=== PATIENT | female | born 1990 | race Hispanic/Latino ===

== ENCOUNTER 2021-05-26 07:43 | Emergency (ER) | payer OTHER ==
[~2021-05-26] VITALS: Ht 154.9 cm; Wt 88.6 kg
[~2021-05-26 07:43] MED LIST: ACETAMINOP160 MG/5 M; CIPRO500 MG OR; FERR SULFATE325 MG PO; LORTAB 7.57.5 MG PO; NO HOME MEDS; PRENATABS FA PO
[2021-05-26 08:59] VITALS: BP 137/90
== END 2021-05-26 09:12 | disposition home or self-care (01) ==
LOC: ED 07:43
DX: J06.9 Acute upper respiratory infection, unspecified (principal); Z20.822 Contact with and (suspected) exposure to COVID-19

== ENCOUNTER 2023-04-02 19:11 | Emergency (ER) | payer OTHER ==
[2023-04-02] VITALS (7 sets, daily range): BP systolic 140–166; BP diastolic 92–122
[~2023-04-02] VITALS: Ht 154.9 cm; Wt 90.0 kg
[2023-04-02] MEDS ORDERED: NAPROXEN500 MG PO (20:00)
== END 2023-04-02 23:32 | disposition home or self-care (01) ==
LOC: ED 19:11
DX: S93.401A Sprain of unspecified ligament of right ankle, initial encounter (principal); X50.0XXA Overexertion from strenuous movement or load, initial encounter

== ENCOUNTER 2023-10-08 01:17 | Emergency (ER) | payer OTHER ==
[~2023-10-08] VITALS: Ht 154.9 cm; Wt 77.0 kg
[2023-10-08] VITALS (16 sets, daily range): BP systolic 137–201; BP diastolic 81–121
[~2023-10-08 01:17] MED LIST changes: +NAPROXEN500 MG PO
[2023-10-08] MEDS ORDERED: ONDANSETRON HCl 4 MG/2 ML SDV IV ONE (01:25)
[2023-10-08] MEDS ORDERED: MORPHINE SULFATE 4 MG/ML VIAL IV ONE (01:25)
[2023-10-08] MEDS ORDERED: hydrALAZINE HCL 20 MG/ML VIAL(1 ML) IV ONE (02:15)
[2023-10-08 02:19] LABS: BASO% 0.4 % (0-3); EOS% 1.5 % (0-8); HEMATOCRIT 38.6 % (37.0-47.0); HEMOGLOBIN 11.6 g/dl (12.0-16.0); IMMATURE GRANULOCYTES 0.3 % (0.0-5.0); LYMPH% 22.8 % (15-41); MEAN CELL VOLUME 76.4 fL CALC (80.0-100.0); MEAN CORPUSCULAR HGB CONC 30.1 g/dL CAL (32.0-36.0); MONO% 8.3 % (2-13); NEUT# 10.59 thou/uL (2.00-7.15); NEUT% 66.7 % (42-76); RED BLOOD COUNT 5.05 mill/uL (4.20-5.60); RED CELL DISTRI WIDTH 16.7 % (11.5-15.5)
[2023-10-08 02:57] LABS: ALKALINE PHOSPHATASE 123 u/l (38-126); BUN 17 mg/dL (7-17); BUN/CREATININE RATIO 16 (12-20 (CALC)); CHLORIDE 106 mmol/l (95-108); CREATININE 1.1 mg/dL (0.5-1.0); GFR FOR AFR.AMER. > 60 ML/MIN (>=60 (CALC)); GFR OTHER RACES 57 ML/MIN (>=60 (CALC)); LIPASE 163 u/l (23-300); POTASSIUM 3.7 mmol/l (3.5-5.1); SODIUM 141 mmol/l (137-146); TOTAL PROTEIN 7.4 g/dL (6.3-8.2)
[2023-10-08 03:00] LABS: ANION GAP 14 (6-22 (CALC)); CARBON DIOXIDE 25 mmol/l (22-30)
[2023-10-08 03:01] LABS: ALBUMIN 4.3 g/dL (3.2-5.0); BILIRUBIN, TOTAL 0.3 mg/dL (0.02-1.3); SGOT/AST 34 u/l (14-36)
[2023-10-08 03:31] LABS: URINE BILIRUBIN - DIPSTICK Negative (NEGATIVE); URINE BLOOD DIPSTICK Negative (NEGATIVE); URINE GLUCOSE - DIPSTICK Negative (NEGATIVE); URINE KETONE Negative (NEGATIVE); URINE LEUK ESTERASE Negative (NEGATIVE); URINE NITRITE - DIPSTICK Negative (Negative); URINE PH 7.5 (4.5-8.0); URINE PROTEIN - DIPSTICK Negative (NEG-TRACE); URINE SPECIFIC GRAVITY 1.025; URINE UROBILINOGEN - DIPSTICK 0.2 E.U./dL (0.2)
[2023-10-08 03:32] LABS: URINE COLOR Yellow
[2023-10-08] MEDS ORDERED: TAMSULOSIN HCL 0.4 MG CAP PO ONE (04:15)
[2023-10-08] MEDS ORDERED: KETOROLAC TROMETHAMINE 30 MG/ML SDV IM ONE (06:50)
[2023-10-08] MEDS ORDERED: CEPHALEXIN MONOHYDRATE 500 MG/CAP PO ONE (06:50)
[2023-10-08] MEDS ORDERED: TORADOL PO (08:14)
[2023-10-08] MEDS ORDERED: PERCOCET 5/325M1 TAB PO (08:14)
[2023-10-08] MEDS ORDERED: TAMSULOSIN0.4 MG PO (08:14)
[2023-10-08] MEDS ORDERED: KEFLEX500 MG PO (08:14)
== END 2023-10-08 08:18 | disposition home or self-care (01) ==
LOC: ED 01:17
PROVIDERS: Family Medicine
DX: N13.2 Hydronephrosis with renal and ureteral calculous obstruction (principal); Z87.442 Personal history of urinary calculi

== ENCOUNTER 2024-08-30 02:05 | Emergency (ER) | payer OTHER ==
[~2024-08-30] VITALS: Ht 160 cm; Wt 95.0 kg
[~2024-08-30 02:05] MED LIST changes: +KEFLEX500 MG PO; +PERCOCET 5/325M1 TAB PO; +TAMSULOSIN0.4 MG PO; +TORADOL PO
[2024-08-30 02:16] VITALS: BP 172/101
[2024-08-30] MEDS ORDERED: LORazepam 1 MG/TAB PO ONE (02:20)
[2024-08-30 03:55] VITALS: BP 140/85
[2024-08-30 04:00] VITALS: BP 156/90
== END 2024-08-30 04:06 | disposition home or self-care (01) ==
LOC: ED 02:05
DX: F43.89 Other reactions to severe stress (principal); G93.0 Cerebral cysts